=== PATIENT | female | born 2000 | race Caucasian/White ===

== ENCOUNTER 2022-02-15 08:38 | Outpatient (CLI) | payer MEDICAID, SELFPAY ==
[2022-02-15 14:10] LABS: Albumin* 4.4 g/dL (3.3-5.0); Chloride* 104 mmol/L (96-114); Sodium* 140 mmol/L (135-149)
[2022-02-15 14:11] LABS: Potassium* 4.4 mmol/L (3.6-5.1)
[2022-02-15 14:13] LABS: Alanine Aminotransferase* 24 U/L (4-35); Alkaline Phosphatase* 88 U/L (40-150); Aspartate Amino Transferase* 26 U/L (12-35); Bilirubin Total* 0.6 mg/dL (0.1-1.5); Blood Urea Nitrogen* 10 mg/dL (5-24); Carbon Dioxide* 27 mmol/L (20-32); Cholesterol* 170 mg/dL (90-199); Creatinine* 0.7 mg/dL (0.5-1.5); Estimated Glomerular Filt Rate 125 ml/min; Glucose* 87 mg/dL (60-115); Total Protein* 7.4 g/dL (6.0-8.3); Triglycerides* 77 mg/dL (40-149)
[2022-02-15 14:14] LABS: Calcium* 9.6 mg/dL (8.4-10.6); HDL Cholesterol* 50 mg/dL (>=50); LDL Cholesterol Calculated 105 mg/dL (<100)
== END 2022-02-15 08:39 | disposition home or self-care (01) ==
PROVIDERS: PCP Physician Assistant Medical; Visit Provider Physician Assistant Medical
DX: Z01.419 Encounter for gynecological examination (general) (routine) without abnormal findings (principal); Z13.6 Encounter for screening for cardiovascular disorders; Z13.29 Encounter for screening for other suspected endocrine disorder
CPT/HCPCS: 80053; 80061; 84443

== ENCOUNTER 2022-11-07 14:59 | Outpatient (CLI) | payer MEDICAID, SELFPAY | END 2022-11-07 15:00 | disposition home or self-care (01) | PROVIDERS: PCP Physician Assistant Medical; Visit Provider Otolaryngology | DX: Z00.00 Encounter for general adult medical examination without abnormal findings (principal); E04.9 Nontoxic goiter, unspecified | CPT/HCPCS: 84439; 84443 ==

== ENCOUNTER 2022-11-15 14:48 | Outpatient (CLI) | payer MEDICAID, SELFPAY ==
--- NOTE | 2022-11-15 15:00 | CRLHL7_ITS ---
For Patients: As a result of the Century Cures Act, medical imaging exams and procedure reports are released immediately into your electronic medical record. You may view this report before your referring provider. If you have questions, please contact your health care provider. INDICATION: Enlarged thyroid COMPARISON: none TECHNIQUE: Rain scale and color Doppler images were acquired of the thyroid gland. FINDINGS: The thyroid gland demonstrates heterogeneous echogenicity and has a smooth outer contour. The right lobe measures 5.2 x 1.9 x 2.8 cm and the left lobe measures 5.2 x 1.0 x 1.7 cm in size. Isthmus measures 3 millimeters. Solid and cystic nodule within the midportion of the right thyroid lobe measuring 3.5 x 1.5 x 2.5 cm. Small near isoechoic nodule left thyroid lobe superiorly measuring 6 x 4 x 6 millimeters. Additional isoechoic nodule inferior pole left thyroid lobe measuring 9 x 4 x 6 millimeters. The color Doppler images demonstrate normal vascularity. There is no evidence of cervical lymphadenopathy or parathyroid mass. IMPRESSION: 3.5 cm TR 3 nodule right thyroid lobe. FNA recommended. Dictated by Art Church MD @ 11/16/2022 9:36:23 AM (Electronically Signed)
== END 2022-11-15 14:49 | disposition home or self-care (01) ==
LOC: US 14:49
PROVIDERS: PCP Physician Assistant Medical; Visit Provider Otolaryngology
DX: E04.9 Nontoxic goiter, unspecified (principal)
CPT/HCPCS: 76536

== ENCOUNTER 2022-12-05 09:16 | Outpatient (CLI) | payer OTHER, SELFPAY ==
--- NOTE | 2022-12-05 09:15 | CRLHL7_ITS ---
For Patients: As a result of the Century Cures Act, medical imaging exams and procedure reports are released immediately into your electronic medical record. You may view this report before your referring provider. If you have questions, please contact your health care provider. INDICATION : Right thyroid lobe thyroid nodule. TECHNIQUE : Ultrasound-guided fine needle aspiration of thyroid nodule. Comparison : 11/15/2022 FINDINGS : PROCEDURE: After the informed consent and time-out, multiple fine needle aspirations were obtained from the thyroid nodule. Fine needle performed. 25 gauge needles were used. Lidocaine was used for local anesthesia. The preliminary cytology was adequate for interpretation. Real-time imaging was used for guidance and needle placement. Post imaging ultrasound demonstrates no immediate complication. IMPRESSION : Successful fine needle aspiration of right thyroid lobe nodule. Dictated by Art Church MD @ 12/05/2022 11:08:35 AM (Electronically Signed)
== END 2022-12-05 09:17 | disposition home or self-care (01) ==
LOC: US 09:16
PROVIDERS: PCP Physician Assistant Medical; Visit Provider Surgery
DX: E04.1 Nontoxic single thyroid nodule (principal); C73 Malignant neoplasm of thyroid gland
CPT/HCPCS: 10005; 88173

== ENCOUNTER 2022-12-18 15:36 | Outpatient (CLI) | payer OTHER, SELFPAY ==
--- NOTE | 2022-12-18 16:00 | CT_ITS ---
Patient: WOLF RAMACHANDRAN Facility:?[facility] Patient ID:?[id number] Site Patient [id number]:?[id number]. Site :?[id number] Study:?CT-ST Neck W/ISOVUE 370 74CC-12/18/2022 4:16:52 PM Ordering Physician:JUNIOR REID Final Report: INDICATION: Further evaluate thyroid lesion. TECHNIQUE: CT of the neck with 74 cc Isovue 370 iodinated contrast agent. Coronal and sagittal reconstructions are included. COMPARISON: Thyroid ultrasound from 11/15/2022. FINDINGS: Within the right thyroid lobe there is an oblong mass lesion which is predominantly hypodense with multiple internal enhancing septations and nodular foci. It measures 17 millimeters in AP dimension, 26 millimeters in TR dimension, and 32 millimeters in CC dimension. No visible invasion into the overlying sternocleidomastoid muscle. Multiple mildly prominent lymph nodes within the upper neck most prominent at the level 2 bar stations, likely reactive in etiology given their appearance. There is also a well-circumscribed cystic lesion just caudal to the hyoid bone which measures 9 millimeters in AP dimension, 20 millimeters in TR dimension, and 25 millimeters in CC dimension. 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 The oral cavity, nasopharyngeal, oropharyngeal and hypopharyngeal spaces are normal. The supraglottic, glottic and infraglottic larynx are normal. The airway including the trachea is normal and is patent. The parotid glands, submandibular and sublingual glands are normal in appearance. The vascular structures opacify normally with contrast material. No suspicious lytic or blastic osseous lesions. Scattered cervical spondylosis without significant bony neural foraminal stenosis. No periapical dental disease. Visualized paranasal sinuses and mastoid air cells are clear. Visualized orbital and intracranial contents are normal. Supraclavicular regions, mediastinum and soft tissues of the imaged chest wall are normal. Visualized portions of the upper lungs are clear. IMPRESSION: 1. 32 millimeter right-sided thyroid nodule/mass which exhibit internal enhancing septations/nodular foci. It is most compatible with the provided history of thyroid neoplasm. No visible pathologic lymphadenopathy. Several mildly prominent upper cervical lymph nodes are most likely reactive given their appearance. If there is high concern for metastatic lymphadenopathy. PET-CT or direct sampling could be performed to further assess these lymph nodes, which are most prominent at the level 2 bar stations. 2. 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 Please note that all CT scans at this facility use dose modulation, iterative reconstruction, and/or weight-based dosing when appropriate to reduce radiation dose to as low as reasonably achievable. Dictated by Geraldo De Jesus MD @ 12/19/2022 9:50:33 AM Signed by:?Geraldo De Jesus MD @12/19/2022 9:50:33 AM (Electronic Signature)
== END 2022-12-18 15:37 | disposition home or self-care (01) ==
PROVIDERS: PCP Physician Assistant Medical; Visit Provider Surgery
DX: C73 Malignant neoplasm of thyroid gland (principal); R22.1 Localized swelling, mass and lump, neck
CPT/HCPCS: 70491; Q9967